=== PATIENT | female | born 1945 | race Caucasian/White ===

== ENCOUNTER → 2017-07-15 17:50 | Outpatient (CLI) | payer MEDICARE, BC ==
[2015-08-16 10:27] VITALS: BMI 24.9
[~2017-07-15 17:50] MED LIST: FOLIC ACID0.8 MG PO; ZIAC 2.5/6.25 M1 TAB PO
== END | disposition home or self-care (01) ==
LOC: D.MAMMO 14:30
DX: Z12.31 Encounter for screening mammogram for malignant neoplasm of breast (principal)

== ENCOUNTER → 2017-11-21 07:47 | Outpatient (CLI) | payer MEDICARE, BC ==
[2015-08-16 10:27] VITALS: BMI 24.9
== END | disposition home or self-care (01) ==
LOC: D.MRI 11-19 09:30
DX: N95.0 Postmenopausal bleeding (principal)

== ENCOUNTER 2018-07-22 19:00 | Outpatient (CLI) | payer MEDICARE, BC ==
[2015-08-16 10:27] VITALS: BMI 24.9
== END 2018-07-22 23:59 | disposition home or self-care (01) ==
LOC: D.MAMMO 19:00
PROVIDERS: ATTEND Family Medicine
DX: Z12.31 Encounter for screening mammogram for malignant neoplasm of breast (principal)

== ENCOUNTER → 2019-07-09 08:03 | Outpatient (CLI) | payer MEDICARE, BC ==
[2015-08-16 10:27] VITALS: BMI 24.9
--- NOTE | 2019-07-12 09:57 | EC ---
PATIENT:LUIS ENRIQUE ANGELA DATE OF SERVICE: 07/09/19 SEX: F MEDICAL RECORD: [id number] DATE OF : 47 LOCATION:[facility] AGE OF PATIENT: 74 ADMISSION DATE: 07/09/19 REFERRING PHYSICIAN: INTERPRETING PHYSICIAN: KRISTIN BONNER MD ECHOCARDIOGRAM REPORT ECHO CHARGES 4 ECHO COMPLETE Date: 07/09/19 CLINICAL DIAGNOSIS: ASSESS EF AND VALVES, CHEMO ECHOCARDIOGRAPHIC MEASUREMENTS (adult normal given) AC root (d.<3.7cm) 2.6 cm LV Septum d (<1.2 cm> 0.7 cm Valve Excursion 1.3 cm LV Septum (systole) 1.0 cm Left Atria (s.<4.0cm> 3.7 cm LVPW d(<1.2cm) 1.1 cm RV (d.<2.3cm) 2.6 cm LVPW (sytole) 1.4 cm LV diastole(<5.6CM) 4.8 cm MV E-F(>70mm/sec) cm LV systole 3.7 cm LVOT Diameter 1.7 cm MV exc.(>10mm) cm Est.ejection fraction (50-75%) % DOPPLER: LVIT cm/sec A 117 cm/sec E 101 cm/sec LA cm/sec RVSP 16.8 mmHg LVOT 90 cm/sec AOP1/2T m/s Asc. Ao 115 cm/sec RVOT 66 cm/sec RA cm/sec PA 80 cm/sec AV Gradient Peak 5.3 mmHg AV Mean 2.9 mmHg AV Area 1.9 cm MV Gradient Peak 6.6 mmHg MV Mean 3.3 mmHg MV Area cm COMMENTS: Meat Team Member: Vel JOHNSON Motor Vehicle Light Assembler: 3 Dr. Kincaid TAPE# PACS Pericardial Effusion N DATE OF SERVICE: Adequate 2D, color flow imaging, spectral Doppler, and M-Mode No LVH. LV internal dimensions are normal. Wall motion is normal. EF is greater than or equal to 55%. Aortic valve is tricuspid. No evidence of stenosis by Doppler interrogation. Left atrium is normal at 3.7 cm. Mitral valve shows no prolapse. Trivial MR. Right-sided chambers are grossly normal. Trace to mild TR. ECHOCARDIOGRAM REPORT [id number] LUIS ENRIQUE ANGELA TRANSINT:[id number] Voice Confirmation ID: [id number] DOCUMENT ID: [id number] KRISTIN BONNER MD at 0957 CC: [id number] DICTATION DATE: 07/09/19 1015 CLOTH TESTER: 07/09/19 1236 DEP CLI 07/09/19 [id number] [place] [address]
== END | disposition home or self-care (01) ==
LOC: D.ECHO 08:03
PROVIDERS: ATTEND Internal Medicine Hematology & Oncology
DX: C54.1 Malignant neoplasm of endometrium (principal); C78.7 Secondary malignant neoplasm of liver and intrahepatic bile duct; D70.1 Agranulocytosis secondary to cancer chemotherapy; D64.81 Anemia due to antineoplastic chemotherapy; D51.9 Vitamin B12 deficiency anemia, unspecified; R42 Dizziness and giddiness; R26.81 Unsteadiness on feet

== ENCOUNTER 2019-10-22 05:51 | Day surgery (SDC) | payer MEDICARE, BC ==
[~2019-10-22] VITALS: Ht 165.1 cm; Wt 74.8 kg
--- NOTE | ~2019-10-22 | OP ---
PATIENT NAME: LUIS ENRIQUE ANGELA MEDICAL RECORD: [id number] :47 LOCATION:D.OPS ADMISSION DATE: SURGEON: DANIEL CARR MD DATE OF OPERATION: 10/22/2019 PREOPERATIVE DIAGNOSES: 1. Endometrial cancer. 2. Hypertension. POSTOPERATIVE DIAGNOSES: 1. Endometrial cancer. 2. Hypertension. PROCEDURE: 1. Left subclavian vein PowerPort placement. 2. Fluoroscopic interpretation. SURGEON: Daniel Carr MD REPORT OF PROCEDURE: The patient's left chest was prepped and draped in sterile fashion. A needle was used to cannulate the left subclavian vein and a guidewire was advanced with ease. Fluoro was used to note that the wire was in good position in the venous system. A skin incision was then made on the left superior lateral chest and a subcutaneous pouch was made over the pectoral fascia. The catheter was tunneled between this pouch and the wire exit site. The port was then sutured to the pectoral fascia with interrupted 3-0 Prolenes. The catheter was cut with a beveled tip at 23 cm. The dilator trocar device was placed over the wire and the wire and dilator were removed and the catheter tip was advanced through the trocar and the trocar was then removed. Fluoro showed that the catheter tip resting in good position at the right atrial superior vena caval junction. The catheter aspirated nonpulsatile dark blood and flushed easily with heparinized saline. The subcutaneous tissues were then infused with 5 mL of 0.25% Marcaine with epinephrine. We reapproximated the subcutaneous tissues with interrupted 3-0 Vicryl and the skin was closed with running subcutaneous 5-0 Monocryl. COMPLICATIONS: None. CONDITION: Stable. ANESTHESIA: General endotracheal and local. BLOOD LOSS: Minimal. TRANSINT:[id number] Voice Confirmation ID: [id number] DOCUMENT ID: [id number] DANIEL CARR MD CC: SONYA MCELROY MD [id number] DICTATION DATE: 10/22/19914 RECORD FILING CLERK: 10/22/19 1016 [facility] [address] [place] [address]
[~2019-10-22 05:51] MED LIST changes: +FUROSEMIDE20 MG PO; +IMODIUM2 MG PO; +ZIAC 5-6.25 MG1 TAB PO; +vitamin b complex PO
[2019-10-22 07:58] VITALS: BP 184/72; Ht 165.1 cm; Wt 74.8 kg
[2019-10-22 08:05] LABS: BASOPHILS 0.2 % (0-2); EOSINOPHILS 1.4 % (0-7); HEMATOCRIT 25.4 % (36.0-48.0); IMMATURE GRANULOCYTES 0.2 % (0-5); LYMPHOCYTES 35.8 % (15-50); MCH 30.4 pg (26.0-34.0); MCHC 31.5 g/dL (31.0-37.0); MCV 96.6 fL (80.0-100.0); MEAN PLATELET VOLUME 8.6 fL (7.4-10.4); MONOCYTES 9.4 % (2-11); RBC 2.63 10x6/uL (4.00-5.40); RDW 13.4 % (11.5-14.5); WBC 5.1 10x3/uL (4.8-10.8)
[2019-10-22 08:07] LABS: PLATELET COUNT 146 10x3/uL (130-400)
[2019-10-22 08:11] LABS: ANION GAP 7.3 mmol/L (8-16); CALCIUM 7.2 mg/dL (8.5-10.1); CARBON DIOXIDE 27.5 mmol/L (21.0-32.0); CREATININE - SERUM 1.4 mg/dL (0.6-1.3); POTASSIUM - SERUM 3.8 mmol/L (3.5-5.1)
[2019-10-22 08:14] LABS: APTT 30.1 SECONDS (22.8-39.4); INR 1.13 (0.85-1.17); PROTIME 14.5 SECONDS (11.6-15.0)
[2019-10-22] MEDS ORDERED: HYDROCODON-ACE1 EAC7 PO (09:12)
--- NOTE | 2019-10-22 11:12 | NUR ---
1053-VERY PLEASANT. DENIES PAIN. DRESSING TO LEFT CHEST CDI. VSS. NO DISTRESS. TOLERATED PUDDING. REMOVED IV WITH CATH INTACT, DISPOSED INTO SHARPS,COVERED WITH GUAZE, SECURED WITH MEDIPORE TAPE. REVIEWED POST OP INSTRUCTIONS AND FOLLOW UP APPOINTMENT WITH PT AND WHO IS AT BEDSIDE. VERBALIZED UNDERSTANDING.
--- NOTE | 2019-10-22 11:14 | NUR ---
1058-ESCORTED OUT VIA W/C BY STAFF WITH SPOUSE AWAITING TO DRIVE HOME.
== END 2019-10-22 10:58 | disposition home or self-care (01) ==
LOC: D.OPS 05:51 → D.PAN 07:30 → D.OPS 08:15 → D.PAN 08:15 → D.OPS 09:15
PROVIDERS: Anesthesiology; ATTEND Surgery
DX: C54.1 Malignant neoplasm of endometrium (principal); I10 Essential (primary) hypertension; E11.9 Type 2 diabetes mellitus without complications; K40.90 Unilateral inguinal hernia, without obstruction or gangrene, not specified as recurrent